=== PATIENT | female | born 1955 | race Caucasian/White ===

== ENCOUNTER 2019-09-20 22:39 | Emergency (ER) | payer OTHER ==
--- NOTE | 2019-09-21 00:17 | ER Document Report ---
ED Medical Screen (RME) - General Chief Complaint: Headache >24 hrs old Stated Complaint: HEADACHE Time Seen by Provider: 09/21/19 00:07 Notes: 63-year-old female chief complaint of headache. She states she has had intermittent headaches for several days to weeks but today was much more noticeable and would not resolve. She reports vague nausea and pressure all over her head. Her blood pressure is also elevated more than usual tonight, she is treated for hypertension and she is also on Eliquis for history of pulmonary embolism. She denies head injury or focal numbness/weakness. She denies visual changes. - Related Data Allergies/Adverse Reactions: No Known Allergies Allergy (Unverified 09/20/19 23:43) Home Medications: Eliquis. Amplodipine Past Medical History - Social History Frequency of alcohol use: None Drug Abuse: None Physical Exam - Vital signs Vitals: Temp Pulse Resp BP Pulse Ox 98.1 F 88 16 176/60 H 99 09/20/19 22:55 09/20/19 22:55 09/20/19 22:55 09/20/19 22:55 09/20/19 22:55 - Neurological Cognition: Normal Orientation: AAOx4 [place] Coma Scale Eye Opening: Spontaneous [place] Coma Scale Verbal: Oriented [place] Coma Scale Motor: Obeys Commands Dre Coma Scale Total: 15 Speech: Normal Course - Re-evaluation Re-evalutation: I have greeted and performed a rapid initial assessment of this patient. A comprehensive ED assessment and evaluation of the patient, analysis of test results and completion of the medical decision making process will be conducted by additional ED providers. - Vital Signs Vital signs: Temp Pulse Resp BP Pulse Ox 98.1 F 88 16 176/60 H 99 09/20/19 22:55 09/20/19 22:55 09/20/19 22:55 09/20/19 22:55 09/20/19 22:55
--- NOTE | 2019-09-21 00:49 | RADIOLOGY REPORT (SQ) ---
CT HEAD WITHOUT IV CONTRAST EXAM DATE: 09/21/2019 12:14 AM RESIDENTIAL PROPERTY MANAGER HISTORY: Headache, hypertension, on Eliquis. COMPARISON: None. TECHNIQUE: CT scan of the brain without IV contrast. This exam was performed according to our departmental dose-optimization program, which includes automated exposure control, adjustment of the mA and/or kV according to patient size and/or use of iterative reconstruction technique. FINDINGS: The ventricles, cisterns, and sulci are age-appropriate. No evidence of acute infarction, intracranial hemorrhage, extra-axial fluid collection, or midline shift. No air-fluid levels are seen in the paranasal sinuses to suggest acute sinusitis. No depressed skull fracture. IMPRESSION: No acute intracranial findings.
[2019-09-21] MEDS ORDERED: NORMAL SALINE 1000 ML 1,000 ML IV ONE (01:12)
[2019-09-21] MEDS ORDERED: KETOROLAC TROMETHAMINE INJ/PF 30 MG/1 ML SDV IV ONE (01:13)
[2019-09-21] MEDS ORDERED: METOCLOPRAMIDE HCL INJ/PF 10 MG/2 ML SDV IV ONE (01:13)
--- NOTE | 2019-09-21 01:28 | ER Document Report ---
ED General - General Chief Complaint: Headache >24 hrs old Stated Complaint: HEADACHE Time Seen by Provider: 09/21/19 00:07 TRAVEL OUTSIDE OF THE [place] IN LAST 30 DAYS: No - HPI Notes: Mrs. Mcgee is a 52-lerc-lrh-year-old female presenting with a chief complaint of headache. Patient has a remote history of migraine headaches but says she has not really had a bad migraine in over 5 years. She is not any specific treatment for migraine at this time. She notes that approximately 3 months ago she was started on Eliquis orally after she had a PE. Since then she has had some insidious onset of some intermittent dull generalized headaches. Over the last week they have become more intense and are now bitemporal and intermittently throbbing. Associated with nausea without vomiting. She occasi onally sees some "spots and wavy lines" in both eyes. She denies fever. She denies trauma. She denies any focal weakness. She denies paresthesias. No difficulty with swallowing or speaking. No associated nasal congestion or sinus problems that she is aware of. Intensity presently describes 5/10. She is taken Tylenol intermittently with minimal relief. Pertinent prior history: Hypertension Past smoker. PE - Related Data Allergies/Adverse Reactions: No Known Allergies Allergy (Unverified 09/20/19 23:43) Home Medications: Eliquis. Amplodipine Past Medical History - General Information source: Patient, Relative - Social History Smoking Status: Former Smoker Frequency of alcohol use: None Drug Abuse: None Family History: Reviewed & Not Pertinent Patient has suicidal ideation: No Patient has homicidal ideation: No Neurological Medical History: Reports: Hx Migraine Review of Systems - Review of Systems Notes: Constitutional: Negative for fever. HENT: Negative for sore throat. Eyes: As per HPI. Cardiovascular: Negative for chest pain. Respiratory: Negative for shortness of breath. Gastrointestinal: Positive for nausea. Negative for abdominal pain, vomiting or diarrhea. Genitourinary: Negative for dysuria. Musculoskeletal: Negative for back pain. Skin: Negative for rash. Neurological: As per HPI. 10 point ROS negative except as marked above and in HPI. Physical Exam - Vital signs Vitals: Temp Pulse Resp BP Pulse Ox 98.1 F 88 16 176/60 H 99 09/20/19 22:55 09/20/19 22:55 09/20/19 22:55 09/20/19 22:55 09/20/19 22:55 - Notes Notes: GENERAL: Well-developed well-nourished appearing in no acute distress. SKIN: Good turgor no rashes. HEAD: Normocephalic atraumatic. No tenderness or thickening on palpation over the temporal arteries. EYES: PERRLA. EOMI. Conjunctivae and sclerae clear. EARS: CANALS AND TMS CLEAR. NOSE: CLEAR. MOUTH: Moist mucosa. Good dentition. No stridor or edema. No drooling. NECK: Supple. No masses or thyromegaly. No adenopathy. Carotids 2+ without bruits. No JVD. BACK: Symmetrical without tenderness. CHEST: Respirations unlabored. Breath sounds clear and symmetrical. HEART: Regular rhythm. No murmur gallop or rub. ABDOMEN: Soft nontender without masses, organomegaly or rebound. Bowel sounds normally active. No bruits. GENITALIA: Deferred. EXTREMITIES: No edema. No calf tenderness. Cap refill less than 1.5 seconds. Dorsalis pedis and posterior tibial pulses 3+ and symmetrical. NEUROLOGICAL: GCS 15. Alert and oriented x3. Normal gait. Fluent speech. Cranial nerves II through XII intact. Sensorimotor and cerebellar normal. Normal tone. PSYCHIATRIC: Flat affect. Course - Re-evaluation Re-evalutation: 10/02/19 15:57 Patient's headache was felt to be due to migraine. She was treated with normal saline IV along with metoclopramide and Toradol. She felt much better with this and decided to sign herself out before I could get back into see her for follow- up evaluation. She left the department AGAINST MEDICAL ADVICE. - Vital Signs Vital signs: Temp Pulse Resp BP Pulse Ox 98.1 F 69 18 111/49 L 97 09/21/19 03:07 09/21/19 03:07 09/21/19 03:07 09/21/19 03:07 09/21/19 03:07 - Laboratory Result Diagrams: 09/21/19 01:48 09/21/19 01:48 Discharge - Discharge Clinical Impression: Migraine headache Qualifiers: Migraine type: unspecified Status migrainosus presence: without status migrainosus Intractability: not intractable Qualified Code(s): G43.909 - Migraine, unspecified, not intractable, without status migrainosus Disposition: AGAINST MEDICAL ADVICE
[2019-09-21 02:06] LABS: ABSOLUTE EOSINOPHILS # (AUTO) 0.1 10^3/uL (0.0-0.6); ABSOLUTE LYMPHOCYTES (AUTO) 1.5 10^3/uL (0.5-4.7); ABSOLUTE MONOCYTES (AUTO) 0.4 10^3/uL (0.1-1.4); ABSOLUTE NEUT (AUTO) 3.3 10^3/uL (1.7-8.2); BASOPHILS % (AUTO) 0.3 % (0-2); HEMATOCRIT 42.9 % (36.0-47.0); HEMOGLOBIN 14.6 g/dL (12.0-15.5); LYMPHOCYTES % (AUTO) 28.7 % (13-45); MEAN CORPUSCULAR HEMOGLOBIN 30.6 pg (27.0-33.4); MEAN CORPUSCULAR VOLUME 90 fl (80-97); PLATELET COUNT 281 10^3/uL (150-450); RED BLOOD COUNT 4.77 10^6/uL (3.72-5.28); TOTAL CELLS COUNTED % (AUTO) 100 %; WHITE BLOOD COUNT 5.3 10^3/uL (4.0-10.5)
[2019-09-21 02:24] LABS: ALBUMIN 4.4 g/dL (3.5-5.0); ALKALINE PHOSPHATASE 88 U/L (38-126); ANION GAP 10 (5-19); ASPARTATE AMINO TRANSFERASE 26 U/L (14-36); BILIRUBIN,DIRECT 0.2 mg/dL (0.0-0.4); BILIRUBIN,TOTAL 0.5 mg/dL (0.2-1.3); BLOOD UREA NITROGEN 18 mg/dL (7-20); CARBON DIOXIDE 27 mmol/L (22-30); CHLORIDE 104 mmol/L (98-107); GLUCOSE 101 mg/dL (75-110); POTASSIUM 4.2 mmol/L (3.6-5.0); TOTAL PROTEIN 7.6 g/dL (6.3-8.2)
[2019-09-21 02:56] LABS: ERYTHROCYTE SEDIMENTATION RATE 19 mm/hr (0-30)
[2019-09-21 03:13] VITALS: BP 111/49
== END 2019-09-21 04:03 | disposition left against medical advice (07) ==
LOC: ER 22:39
DX: G43.909 Migraine, unspecified, not intractable, without status migrainosus (principal); R11.0 Nausea; Z79.01 Long term (current) use of anticoagulants; Z86.711 Personal history of pulmonary embolism; Z79.899 Other long term (current) drug therapy; Z87.891 Personal history of nicotine dependence
CPT/HCPCS: 99281; 96361; 96374; 96375; 36415; 85025; 85652; 80053; 70450; J1885; J2765; J7030

== ENCOUNTER 2019-10-13 17:11 | Emergency (ER) | payer OTHER ==
--- NOTE | 2019-10-13 17:52 | ER Document Report ---
ED Medical Screen (RME) - General Chief Complaint: High Blood Pressure Stated Complaint: HEADACHE/ELEVATED BLOOD PRESSURE Time Seen by Provider: 10/13/19 17:25 Notes: Patient is a 63-year-old female with a history of high blood pressure who pre sents emergency department with a chief complaint of headache. Patient reports that she has been battling elevated blood pressure over the past 2 months. Patient reports she is currently on Xarelto for pulmonary embolus that was diagnosed back in July. Patient reports that she has been to her primary care physician multiple times with the last visit, last week. She reports that they have been adjusting her dosages of blood pressure medications to help with the hypertension. Patient reports last night she had the worst headache of her life and felt a lot of pressure to the top of her head. Patient reports intermittent dizziness and intermittent numbness to the front of her face. Patient reports on Monday she did have an episode of chest tightness. Patient reports that at home her blood pressure was in the 200s systolic. Patient concerned because never been that high before. TRAVEL OUTSIDE OF THE [place] IN LAST 30 DAYS: No - Related Data Allergies/Adverse Reactions: No Known Allergies Allergy (Unverified 10/13/19 17:26) Home Medications: Metoprolol Past Medical History - Past Medical History Cardiac Medical History: Reports: Hx Hypertension Neurological Medical History: Reports: Hx Migraine Past Surgical History: Reports: Hx Breast Surgery Physical Exam - HEENT Head: Normocephalic Eyes: Normal Conjunctiva: Normal Cornea: Normal Pupils: PERRL Course - Re-evaluation Re-evalutation: 10/13/19 17:51 I have greeted and performed a rapid initial assessment of this patient. A comprehensive ED assessment and evaluation of the patient, analysis of test results and completion of the medical decision making process will be conducted by additional ED providers.
[2019-10-13 18:35] LABS: ABSOLUTE LYMPHOCYTES (AUTO) 1.5 10^3/uL (0.5-4.7); ABSOLUTE MONOCYTES (AUTO) 0.4 10^3/uL (0.1-1.4); ABSOLUTE NEUT (AUTO) 3.5 10^3/uL (1.7-8.2); BASOPHILS % (AUTO) 0.2 % (0-2); EOSINOPHILS % (AUTO) 0.6 % (0-6); HEMATOCRIT 43.1 % (36.0-47.0); HEMOGLOBIN 14.8 g/dL (12.0-15.5); LYMPHOCYTES % (AUTO) 27.4 % (13-45); MEAN CORPUSCULAR HEMOGLOBIN 30.7 pg (27.0-33.4); MEAN CORPUSCULAR HGB CONC 34.4 g/dL (32.0-36.0); MEAN CORPUSCULAR VOLUME 89 fl (80-97); MONOCYTES % (AUTO) 6.6 % (3-13); PLATELET COUNT 273 10^3/uL (150-450); RED BLOOD COUNT 4.82 10^6/uL (3.72-5.28); SEGMENTED NEUTROPHILS % (AUTO) 65.2 % (42-78); TOTAL CELLS COUNTED % (AUTO) 100 %; WHITE BLOOD COUNT 5.4 10^3/uL (4.0-10.5)
--- NOTE | 2019-10-13 18:36 | RADIOLOGY REPORT (SQ) ---
EXAM DESCRIPTION: CT HEAD WITHOUT COMPLETED DATE/TIME: 10/13/2019 6:28 pm REASON FOR STUDY: on xarelto, elevated bp, "worst headache." COMPARISON: CT head 09/21/2019 TECHNIQUE: Axial images acquired through the brain without intravenous contrast. Images reviewed wi th bone, brain and subdural windows. Additional sagittal and coronal reconstructions were generated. Images stored on PACS. All CT scanners at this facility use dose modulation, iterative reconstruction, and/or weight based d osing when appropriate to reduce radiation dose to as low as reasonably achievable (ALARA). [facility]: Dose Right [facility]: CareDose [facility]: Dose Right [facility]: Teradose 4D [facility]: Digital Air Strike RADIATION DOSE: CT Rad equipment meets quality standard of care and radiation dose reduction techniq ues were employed. CTDIvol: 53.2 mGy. DLP: 991 mGy-cm. mGy. LIMITATIONS: None. FINDINGS: VENTRICLES: Normal size and contour. CEREBRUM: No masses. No hemorrhage. No midline shift. No evidence for acute infarction. Normal gra y/white matter differentiation. No areas of low density in the white matter. CEREBELLUM: No masses. No hemorrhage. No alteration of density. No evidence for acute infarction. EXTRAAXIAL SPACES: No fluid collections. No masses. ORBITS AND GLOBE: No intra- or extraconal masses. Normal contour of globe without masses. CALVARIUM: No fracture. PARANASAL SINUSES: No fluid or mucosal thickening. SOFT TISSUES: No mass or hematoma. OTHER: No other significant finding. IMPRESSION: No acute intracranial findings. EVIDENCE OF ACUTE STROKE: NO. COMMENT: Quality ID # [id number]: Final reports with documentation of one or more dose reduction techniques (e.g., Automated exposure control, adjustment of the mA and/or kV according to patient size, use of iterative reconstruction technique) TECHNICAL DOCUMENTATION: JOB ID: [id number] [employer]- All Rights Reserved Reading location - IP/workstation name: [email or web address]
[2019-10-13 18:41] LABS: APPEARANCE,URINE CLEAR; BILIRUBIN,URINE NEGATIVE (NEGATIVE); COLOR,URINE STRAW; GLUCOSE, URINE NEGATIVE (NEGATIVE); KETONES,URINE NEGATIVE (NEGATIVE); LEUKOCYTE ESTERASE,URINE NEGATIVE (NEGATIVE); NITRITE,URINE NEGATIVE (NEGATIVE); PROTEIN,URINE NEGATIVE (NEGATIVE); URINE SPECIFIC GRAVITY 1.003; UROBILINOGEN,URINE NEGATIVE mg/dL (<2.0)
[2019-10-13 18:52] LABS: ALBUMIN 4.6 g/dL (3.5-5.0); ALKALINE PHOSPHATASE 87 U/L (38-126); ANION GAP 11 (5-19); ASPARTATE AMINO TRANSFERASE 25 U/L (14-36); BILIRUBIN,DIRECT 0.2 mg/dL (0.0-0.4); BILIRUBIN,TOTAL 0.6 mg/dL (0.2-1.3); BLOOD UREA NITROGEN 12 mg/dL (7-20); CALCIUM 9.9 mg/dL (8.4-10.2); CARBON DIOXIDE 27 mmol/L (22-30); CHLORIDE 102 mmol/L (98-107); GLUCOSE 110 mg/dL (75-110); POTASSIUM 3.8 mmol/L (3.6-5.0)
--- NOTE | 2019-10-13 21:23 | ER Document Report ---
ED General - General Chief Complaint: High Blood Pressure Stated Complaint: HEADACHE/ELEVATED BLOOD PRESSURE Time Seen by Provider: 10/13/19 17:25 Primary Care Provider: MIRA ZAMORA FNP [Primary Care Provider] - Follow up as needed TRAVEL OUTSIDE OF THE [place] IN LAST 30 DAYS: No - HPI Notes: Patient is a 63-year-old female who presents to the emergency department for evaluation. She is had variable blood pressure over the last several weeks. She admits that she seen her primary care provider, who is changed her blood pressure medications multiple times. She also complains of headaches. She states that her headaches began when she was started on Xarelto. She was initially started on Eliquis, that was changed to Xarelto. This is for bilateral pulmonary emboli. The patient states that she has headaches that start in the back of her neck and reactive around her head. She states that she is concerned this is from the blood thinners. She states she really does not want to take any of these medications. She has been checking her blood pressure at least 4-6 times daily over the past several weeks. She has had multiple changes in her blood pressures. On further questioning, she is also under a significant amount of stress. Her mother is very infirmed and will likely not live for much longer. She lives next door. The patient is recently retired. She is had multiple life changes. - Related Data Allergies/Adverse Reactions: No Known Allergies Allergy (Unverified 10/13/19 17:26) Home Medications: List reviewed, please see note Past Medical History - General Information source: Patient - Social History Smoking Status: Former Smoker Family History: Reviewed & Not Pertinent Patient has suicidal ideation: No Patient has homicidal ideation: No - Past Medical History Cardiac Medical History: Reports: Hx Hypertension, Hx Pulmonary Embolism Neurological Medical History: Reports: Hx Migraine Past Surgical History: Reports: Hx Breast Surgery Review of Systems - Review of Systems Constitutional: No symptoms reported EENT: No symptoms reported Cardiovascular: No symptoms reported Respiratory: No symptoms reported Gastrointestinal: No symptoms reported Genitourinary: No symptoms reported Musculoskeletal: No symptoms reported Skin: No symptoms reported Neurological/Psychological: No symptoms reported Physical Exam - Vital signs Vitals: Resp 20 10/13/19 18:28 - Notes Notes: Vital signs reviewed, please refer to chart. Head is normocephalic, atraumatic. Pupils equal round, reactive to light. Neck is supple without meningismus. Heart is regular rate and rhythm. Lungs are clear to auscultation bilaterally. Abdomen is soft, nontender, normoactive bowel sounds throughout. Extremities without cyanosis, clubbing. Posterior calves are nontender. Peripheral pulses are equal. Skin is warm and dry. Patient is awake, alert, oriented x3. Cranial nerves II - XII are grossly intact without focal neurological deficits. Strength is plus 5 out of 5 bilateral upper and lower extremities. Sensation is intact. Reflexes symmetrical. Intact [id number], rapid alternating movements, [id number]. Course - Re-evaluation Re-evalutation: 10/13/19 21:21 Patient presents emergency department for evaluation. She had initial laboratory investigations as ordered through triage, including imaging. Laboratory investigation showed no signs of endorgan damage. Her exam is completely unremarkable. Her blood pressure improved significantly without intervention. My strong suspicion is that this patient is under significant amount of stress, both with concern over her health, as well as concern over some life changes. I strongly urged her to decrease her blood pressure checks to once daily. She is told to stick with one medication regimen over the next few weeks. She is to keep a record of these daily blood pressures and bring them at her fleece tier's office. We talked at length about stress, its relationship to headaches, chronic illness, and other issues. I strongly urged her to seek out further care in regards to the stressors in her life, whether it be with friends, pastoral care, or therapy. She voiced understanding. At any rate, we will have the patient go back on the losartan, hydrochlorothiazide, Norvasc combination, and follow-up as scheduled. She is to return to the ED with worsening. - Vital Signs Vital signs: Temp Pulse Resp BP Pulse Ox 18 134/65 H 97 10/13/19 20:01 10/13/19 20:00 10/13/19 20:01 - Laboratory Result Diagrams: 10/13/19 18:00 10/13/19 18:00 Laboratory results interpreted by me: 10/13/19 18:00 Urine Blood SMALL H - Diagnostic Test Radiology reviewed: Reports reviewed Radiology results interpreted by me: 10/13/19 21:[address] 10/13/19 17:48 IMPRESSION: No acute intracranial findings. EVIDENCE OF ACUTE STROKE: NO. - EKG Interpretation by Me Additional EKG results interpreted by me: 10/13/19 21:22 Sinus mechanism with a rate of 68 bpm. Normal axis and intervals, no acute ST changes concerning for ischemia or infarction. Discharge - Discharge Clinical Impression: Tension headache Hypertension Qualifiers: Hypertension type: essential hypertension Qualified Code(s): I10 - Essential (primary) hypertension Condition: Stable Disposition: HOME, SELF-CARE Instructions: Headache ([facility]), High Blood Pressure, Requiring Treatment ([facility]) Additional Instructions: Please take your losartan, hydrochlorothiazide, and amlodipine as directed. Check your blood pressure once daily, please take it at varying times. Follow- up with your primary care provider and fleece tier. If you develop worsening or new concerning symptoms of any sort, please return immediately to the emergency department for reevaluation. Referrals: MIRA ZAMORA FNP [Primary Care Provider] - Follow up as needed
--- NOTE | 2019-10-13 21:59 | EKG REPORT ---
SEVERITY:- NORMAL ECG - SINUS RHYTHM : Confirmed by: Tera Pompa MD 13-Oct-2019 21:58:21
[2019-10-13 22:08] VITALS: BP 129/62
== END 2019-10-13 22:10 | disposition home or self-care (01) ==
LOC: ER 17:11
DX: I10 Essential (primary) hypertension (principal); G44.209 Tension-type headache, unspecified, not intractable; M54.2 Cervicalgia; I26.99 Other pulmonary embolism without acute cor pulmonale; Z79.01 Long term (current) use of anticoagulants; Z87.891 Personal history of nicotine dependence
CPT/HCPCS: 36415; 70450; 80053; 81001; 84484; 85025; 93005; 93010; 99284

== ENCOUNTER → 2019-10-31 | Outpatient (CLI) | payer OTHER ==
--- NOTE | 2019-10-31 14:45 | RADIOLOGY REPORT (SQ) ---
EXAM DESCRIPTION: C SP 4 OR 5 VIEWS COMPLETED DATE/TIME: 10/31/2019 11:18 am REASON FOR STUDY: CERVICALGIA M54.2 CERVICALGIA M54.9 DORSALGIA, UNSPECIFIED COMPARISON: None. NUMBER OF VIEWS: Five views. TECHNIQUE: AP, lateral, obliques and odontoid radiographic images acquired of the cervical spine. LIMITATIONS: None. FINDINGS: MINERALIZATION: Normal. ALIGNMENT: Anatomic. VERTEBRAE: Vertebral bodies of normal height. DISCS: Mild disc narrowing at C5-6 with marginal osteophytes. FORAMINA: No osteophytes or foraminal narrowing. LATERAL AND POSTERIOR ELEMENTS: Facets, lateral masses and spinous processes without significant find ings. HARDWARE: None in the spine. SOFT TISSUES: No masses or calcifications. Lung apices clear. OTHER: No other significant finding. IMPRESSION: Mild degenerative disc disease and spondylosis. No acute finding. TECHNICAL DOCUMENTATION: JOB ID: [id number] 2010 [employer]- All Rights Reserved Reading location - IP/workstation name: [email or web address]
--- NOTE | 2019-10-31 14:47 | RADIOLOGY REPORT (SQ) ---
EXAM DESCRIPTION: T SPINE AP/LAT COMPLETED DATE/TIME: 10/31/2019 11:18 am REASON FOR STUDY: DORSALGIA, UNSPECIFIED M54.2 CERVICALGIA M54.9 DORSALGIA, UNSPECIFIED COMPARISON: None. NUMBER OF VIEWS: Two views. TECHNIQUE: AP and lateral radiographic images acquired of the thoracic spine. LIMITATIONS: None. FINDINGS: MINERALIZATION: Normal. ALIGNMENT: Mild levoscoliosis. VERTEBRAE: There are compression changes at about L3 and mild superior endplate compression changes a t L1. These do not appear to be acute. DISCS: Disc spaces are fairly well maintained. There are bridging osteophytes in the mid to lower th oracic spine. HARDWARE: None in the spine. MEDIASTINUM AND SOFT TISSUES: Normal heart size and aortic contour. No soft tissue abnormality. VISUALIZED LUNG EDWARD: Clear. OTHER: No other significant finding. IMPRESSION: Mild scoliosis. Spondylosis. No acute finding. TECHNICAL DOCUMENTATION: JOB ID: [id number] 2010 [employer]- All Rights Reserved Reading location - IP/workstation name: [email or web address]
== END ==
LOC: OD 10:53
PROVIDERS: ATTEND Family Medicine Geriatric Medicine
DX: M54.2 Cervicalgia (principal); M54.9 Dorsalgia, unspecified
CPT/HCPCS: 72050; 72070

== ENCOUNTER 2019-11-03 15:43 | Observation (INO) | payer OTHER ==
[2019-11-03] MEDS ORDERED: ASPIRIN 81 MG TABLET, CHEWABLE PO ONE (15:54)
[2019-11-03] MEDS ORDERED: ONDANSETRON 4 MG TAB.RAPDIS PO ONE (15:54)
--- NOTE | 2019-11-03 15:56 | ER Document Report ---
ED Medical Screen (RME) - General Chief Complaint: Chest Tightness Stated Complaint: CHEST TIGHTNESS, LEFT SHOULDER PAIN Time Seen by Provider: 11/03/19 15:53 Primary Care Provider: THOR TORRES MD [Primary Care Provider] - Follow up as needed Notes: 63 y/o female presents with left sided chest pain that radiates into her back/shoulder blade since she woke up this morning. States constant. Associated dyspnea and nausea. Pt states nothing makes worse, nothing makes better. Took 2 baby aspirin at home. Hx cardiac ablation 7-8 years ago. General Manager Food is Dr. Colby at [facility]. RRR. Lungs clear to auscultation bilaterally. I have greeted and performed a rapid initial assessment of this patient. A comprehensive ED assessment and evaluation of the patient, analysis of test results and completion of the medical decision making process with be conducted by additional ED providers. TRAVEL OUTSIDE OF THE [place] IN LAST 30 DAYS: No - Related Data Allergies/Adverse Reactions: No Known Allergies Allergy (Verified 11/03/19 15:50) Past Medical History - Past Medical History Cardiac Medical History: Reports: Hx Hypertension, Hx Pulmonary Embolism Neurological Medical History: Reports: Hx Migraine Past Surgical History: Reports: Hx Breast Surgery Doctor's Discharge - Discharge Referrals: THOR TORRES MD [Primary Care Provider] - Follow up as needed
--- NOTE | 2019-11-03 16:13 | ER Document Report ---
ED General - General Chief Complaint: Chest Pain Stated Complaint: CHEST TIGHTNESS, LEFT SHOULDER PAIN Time Seen by Provider: 11/03/19 15:53 Primary Care Provider: THOR TORRES MD [Primary Care Provider] - Follow up as needed Information source: Patient Notes: 63-year-old female arrives with 7 out of 10 chest pain left-sided with shortness of breath and anxiety and mild nausea. Patient says she feels cold. Patient saw Dr. Freeman photographer's assistant as well as drawer in [employer] last week who advised patient can be weaned off of her Eliquis. She was placed on Eliquis in July because of pulmonary embolism and she began to have severe headaches beginning in August which were quite severe. Her headaches have been decreasing in severity since she is weaned off of her Eliquis over the last week or so. She did take 2.5 this morning because of her left-sided chest pain and chewable aspirin as well. She denies any black tarry stools or hematemesis. Patient reports 8 years ago she did see Dr. Leo in [place] for a heart cath which she reports as negative. And also Dr. Rodriguez 7 years ago because of tachycardia requiring a cardiac ablation. Patient arrives today with a bifid T wave. She does have a history of celiac disease and Sjogren's syndrome which is controlled by gluten-free diet. TRAVEL OUTSIDE OF THE [place] IN LAST 30 DAYS: No - HPI Onset: Just prior to arrival - Related Data Allergies/Adverse Reactions: No Known Allergies Allergy (Verified 11/03/19 15:50) Home Medications: valsartatn. amlodipine. recently stopped eliquis. antibiotic. citalopram Past Medical History - General Information source: Patient - Social History Smoking Status: Former Smoker Cigarette use (# per day): No Chew tobacco use (# tins/day): No Smoking Education Provided: No Frequency of alcohol use: None Drug Abuse: None Lives with: Family Family History: Reviewed & Not Pertinent Patient has suicidal ideation: No Patient has homicidal ideation: No - Past Medical History Cardiac Medical History: Reports: Hx Hypertension, Hx Pulmonary Embolism, Other - tachycardia requiring cardiac ablation 7 years ago Neurological Medical History: Reports: Hx Migraine GI Medical History: Reports: Other - Sjorgens Past Surgical History: Reports: Hx Breast Surgery Review of Systems - Review of Systems Constitutional: No symptoms reported, Malaise, Recent illness EENT: No symptoms reported Cardiovascular: No symptoms reported, See HPI, Chest pain - L Sided chest pain patient holds this with her right hand, Palpitations, Dizziness, Lightheaded Respiratory: See HPI, Hurts to breathe, Short of breath Gastrointestinal: No symptoms reported Genitourinary: No symptoms reported Female Genitourinary: No symptoms reported Musculoskeletal: No symptoms reported Skin: No symptoms reported Hematologic/Lymphatic: No symptoms reported Neurological/Psychological: No symptoms reported Physical Exam - Vital signs Vitals: Resp BP 15 172/67 H 11/03/19 16:31 11/03/19 16:31 Interpretation: Normal - General General appearance: Alert, Anxious - HEENT Head: Normocephalic Eyes: Normal Conjunctiva: Normal Cornea: Normal Extraocular movements intact: Yes Eyelashes: Normal Pupils: PERRL Sinus: Normal Nasal: Normal Mouth/Lips: Normal Pharynx: Normal Neck: Normal - Respiratory Respiratory status: Tripod position Chest status: Tender Breath sounds: Normal Chest palpation: Normal - Cardiovascular Rhythm: Regular Heart sounds: Normal auscultation Murmur: No Friction rub: No Jeet's crunch: No - Abdominal Inspection: Normal Distension: No distension Bowel sounds: Normal Tenderness: Nontender Organomegaly: No organomegaly - Back Back: Normal - Extremities General upper extremity: Normal inspection General lower extremity: Normal inspection - Neurological Neuro grossly intact: Yes Cognition: Normal Orientation: AAOx4 [place] Coma Scale Eye Opening: Spontaneous Dre Coma Scale Verbal: Oriented Speech: Normal Cranial nerves: Normal Cerebellar coordination: Normal Motor strength normal: LUE, RUE, LLE, RLE - Psychological Associated symptoms: Normal affect - Skin Skin Temperature: Warm Skin Moisture: Dry Course - Vital Signs Vital signs: Temp Pulse Resp BP Pulse Ox 98.4 F 20 120/55 L 97 11/03/19 17:56 11/03/19 19:01 11/03/19 19:01 11/03/19 19:01 - Laboratory Result Diagrams: 11/03/19 16:05 11/03/19 16:05 Laboratory results interpreted by me: 11/03/19 11/03/19 16:05 18:15 Creatine Kinase 160 H Urine Ketones 20 H - Diagnostic Test Radiology reviewed: Reports reviewed - EKG Interpretation by Me EKG shows normal: Sinus rhythm Rate: Normal Rhythm: Other - bi T wave Critical Care Note - Critical Care Note Total time excluding time spent on procedures (mins): 90 Comments: I spoke with Dr. Thomas at 1642 and [facility] sent EKG to him . Dr. Thomas was again called after all labs returned at 1853 and he advised admission and he will evaluate the patient in the hospital. I discussed this case with Dr. Prasanth Rizzo and he advises admit Discharge - Discharge Clinical Impression: Chest pain Qualifiers: Chest pain type: unspecified Qualified Code(s): R07.9 - Chest pain, unspecified GERD (gastroesophageal reflux disease) Qualifiers: Esophagitis presence: with esophagitis Qualified Code(s): K21.0 - Gastro- esophageal reflux disease with esophagitis Medication adverse effect Qualifiers: Encounter type: initial encounter Qualified Code(s): T50.905A - Adverse effect of unspecified drugs, medicaments and biological substances, initial encounter Condition: Good Disposition: ADMITTED INPATIENT Admitting Provider: Matthias (Hospitalist) Unit Admitted: Telemetry Additional Instructions: For patient to telemetry Referrals: THOR TORRES MD [Primary Care Provider] - Follow up as needed
[2019-11-03 16:21] LABS: ABSOLUTE LYMPHOCYTES (AUTO) 1.2 10^3/uL (0.5-4.7); ABSOLUTE MONOCYTES (AUTO) 0.3 10^3/uL (0.1-1.4); ABSOLUTE NEUT (AUTO) 3.2 10^3/uL (1.7-8.2); BASOPHILS % (AUTO) 0.3 % (0-2); EOSINOPHILS % (AUTO) 0.2 % (0-6); HEMATOCRIT 41.7 % (36.0-47.0); HEMOGLOBIN 14.3 g/dL (12.0-15.5); LYMPHOCYTES % (AUTO) 25.5 % (13-45); MEAN CORPUSCULAR HEMOGLOBIN 30.9 pg (27.0-33.4); MEAN CORPUSCULAR HGB CONC 34.4 g/dL (32.0-36.0); MEAN CORPUSCULAR VOLUME 90 fl (80-97); MONOCYTES % (AUTO) 6.2 % (3-13); PLATELET COUNT 283 10^3/uL (150-450); RED BLOOD COUNT 4.64 10^6/uL (3.72-5.28); RED CELL DISTRIBUTION WIDTH 13.9 % (11.5-14.0); SEGMENTED NEUTROPHILS % (AUTO) 67.8 % (42-78); TOTAL CELLS COUNTED % (AUTO) 100 %; WHITE BLOOD COUNT 4.7 10^3/uL (4.0-10.5)
--- NOTE | 2019-11-03 16:24 | RADIOLOGY REPORT (SQ) ---
EXAM DESCRIPTION: CHEST 2 VIEWS COMPLETED DATE/TIME: 11/03/2019 4:16 pm REASON FOR STUDY: chest pain COMPARISON: None. TECHNIQUE: Frontal and lateral radiographic views of the chest acquired. NUMBER OF VIEWS: Two view. LIMITATIONS: None. FINDINGS: LUNGS AND PLEURA: No opacities, masses or pneumothorax. No pleural effusion. MEDIASTINUM AND HILAR STRUCTURES: No masses or contour abnormalities. HEART AND VASCULAR STRUCTURES: Heart normal size. No evidence for failure. BONES: No acute findings. HARDWARE: None in the chest. OTHER: No other significant finding. IMPRESSION: NO SIGNIFICANT RADIOGRAPHIC FINDING IN THE CHEST. TECHNICAL DOCUMENTATION: JOB ID: [id number] 2010 [email or web address]- All Rights Reserved Reading location - IP/workstation name: [email or web address]
[2019-11-03 16:30] LABS: INTERNATIONAL RATION (INR) 1.09; PROTHROMBIN TIME 14.1 SEC (11.4-15.4)
[2019-11-03 16:43] LABS: ALBUMIN 4.5 g/dL (3.5-5.0); ALKALINE PHOSPHATASE 92 U/L (38-126); ANION GAP 11 (5-19); ASPARTATE AMINO TRANSFERASE 26 U/L (14-36); BILIRUBIN,DIRECT 0.3 mg/dL (0.0-0.4); BILIRUBIN,TOTAL 0.7 mg/dL (0.2-1.3); BLOOD UREA NITROGEN 9 mg/dL (7-20); CALCIUM 9.3 mg/dL (8.4-10.2); CARBON DIOXIDE 22 mmol/L (22-30); CHLORIDE 106 mmol/L (98-107); CREATINE KINASE 160 U/L (30-135); GLUCOSE 98 mg/dL (75-110); POTASSIUM 4.3 mmol/L (3.6-5.0); TOTAL PROTEIN 7.7 g/dL (6.3-8.2)
[2019-11-03] MEDS ORDERED: LORAZEPAM INJ 2 MG/1 ML VIAL IV ONE (16:52)
[2019-11-03] MEDS ORDERED: LABETALOL HCL INJ 20 MG/4 ML DISP.SYRIN IV ONE (16:53)
[2019-11-03 17:15] LABS: CREATINE KINASE MB 0.73 ng/mL (<4.55)
[2019-11-03 17:16] LABS: TROPONIN I < 0.012 ng/mL
[2019-11-03 17:29] LABS: FREE T4 (FREE THYROXINE) 1.31 ng/dL (0.78-2.19)
[2019-11-03 17:43] LABS: THYROID STIMULATING HORMONE 0.66 uIU/mL (0.47-4.68)
--- NOTE | 2019-11-03 18:02 | RADIOLOGY REPORT (SQ) ---
EXAM DESCRIPTION: CT HEAD WITHOUT COMPLETED DATE/TIME: 11/03/2019 5:50 pm REASON FOR STUDY: tello cp COMPARISON: 10/13/2019 TECHNIQUE: Axial images acquired through the brain without intravenous contrast. Images reviewed wit h bone, brain and subdural windows. Images stored on PACS. All CT scanners at this facility use dose modulation, iterative reconstruction, and/or weight based d osing when appropriate to reduce radiation dose to as low as reasonably achievable (ALARA). [facility]: Dose Right [facility]: CareDose [facility]: Dose Right [facility]: Teradose 4D [facility]: Smart World[employer] RADIATION DOSE: CT Rad equipment meets quality standard of care and radiation dose reduction techniq ues were employed. CTDIvol: 53.2 mGy. DLP: 991 mGy-cm.. LIMITATIONS: None. FINDINGS: VENTRICLES: Normal size and contour. CEREBRUM: No masses. No hemorrhage. No midline shift. Age appropriate white matter. No evidence for a cute infarction. CEREBELLUM: No masses. No hemorrhage. No alteration of density. No evidence for acute infarction. EXTRA-AXIAL SPACES: No fluid collections. ORBITS AND GLOBE: No intra- or extraconal masses. Normal contour of globe without masses. CALVARIUM: No fracture. PARANASAL SINUSES: No fluid or mucosal thickening. SOFT TISSUES: No mass or hematoma. OTHER: No other significant finding. IMPRESSION: NO ACUTE INTRACRANIAL FINDINGS. EVIDENCE OF ACUTE STROKE: NO. TECHNICAL DOCUMENTATION: JOB ID: [id number] Quality ID # [id number]: Final reports with documentation of one or more dose reduction techniques (e.g., Au tomated exposure control, adjustment of the mA and/or kV according to patient size, use of iterative reconstruction technique) 2010 [employer]- All Rights Reserved Reading location - IP/workstation name: [email or web address]
--- NOTE | 2019-11-03 18:02 | EKG REPORT ---
SEVERITY:- BORDERLINE ECG - SINUS RHYTHM MILD NONSPECIFIC ST CHANGES AANTERIOR LEADS : Confirmed by: Tera Pompa MD 03-Nov-2019 18:01:27
--- NOTE | 2019-11-03 18:04 | RADIOLOGY REPORT (SQ) ---
EXAM DESCRIPTION: CTA CHEST COMPLETED DATE/TIME: 11/03/2019 5:50 pm REASON FOR STUDY: tello cp COMPARISON: Recent radiographs. TECHNIQUE: CT scan of the chest performed using helical scanning technique with dynamic intravenous contrast injection. Images reviewed with lung, soft tissue and bone windows. Reconstructed coronal and sagittal MPR images reviewed. Additional 3 dimensional post-processing performed to develop Maximal Intensity Projection images (ID P). All images stored on PACS. All CT scanners at this facility use dose modulation, iterative reconstruction, and/or weight based d osing when appropriate to reduce radiation dose to as low as reasonably achievable (ALARA). [facility]: Dose Right [facility]: CareDose [facility]: Dose Right [facility]: Teradose 4D [facility]: [employer] CONTRAST TYPE AND DOSE: contrast/concentration: Isovue 350.00 mg/ml; Total Contrast Delivered: 59.0 ml; Total Saline Delivered: 80.0 ml Contrast bolus adequate for pulmonary arteries and aorta. RENAL FUNCTION: GFR > 60. RADIATION DOSE: CT Rad equipment meets quality standard of care and radiation dose reduction techniq ues were employed. CTDIvol: 14.9 - 29.8 mGy. DLP: 1008 mGy-cm. . LIMITATIONS: None. FINDINGS: LUNGS AND PLEURA: No masses, infiltrates, or pneumothorax. No pleural effusions or pleura l calcifications. AORTA AND GREAT VESSELS: No aneurysm. Contrast bolus not optimized for the aorta. HEART: No pericardial effusion. No significant coronary artery calcifications. PULMONARY ARTERIES: No emboli visualized in the main pulmonary arteries or the segmental branches. HILAR AND MEDIASTINAL STRUCTURES: No identified masses or abnormal nodes. HARDWARE: None in the chest. UPPER ABDOMEN: No significant findings. Limited exam. THYROID AND OTHER SOFT TISSUES: No masses. No adenopathy. BONES: No acute or significant finding. 3D MIPS: Confirm above findings. OTHER: No other significant finding. IMPRESSION: NORMAL CTA OF THE CHEST. NO PULMONARY EMBOLI. COMMENT: Quality ID # [id number]: Final reports with documentation of one or more dose reduction techniques (e.g., Automated exposure control, adjustment of the mA and/or kV according to patient size, use of iterative reconstruction technique) TECHNICAL DOCUMENTATION: JOB ID: [id number] 2011 [employer]- All Rights Reserved Reading location - IP/workstation name: [email or web address]
[2019-11-03 18:40] LABS: APPEARANCE,URINE CLEAR; BILIRUBIN,URINE NEGATIVE (NEGATIVE); COLOR,URINE YELLOW; GLUCOSE, URINE NEGATIVE (NEGATIVE); KETONES,URINE 20 mg/dL (NEGATIVE); LEUKOCYTE ESTERASE,URINE NEGATIVE (NEGATIVE); NITRITE,URINE NEGATIVE (NEGATIVE); PROTEIN,URINE NEGATIVE (NEGATIVE); URINE SPECIFIC GRAVITY 1.042; UROBILINOGEN,URINE NEGATIVE mg/dL (<2.0)
[2019-11-03] MEDS ORDERED: NORMAL SALINE 1000 ML 1,000 ML IV ONE (18:51)
[2019-11-03] MEDS ORDERED: KETOROLAC TROMETHAMINE INJ/PF 30 MG/1 ML SDV IV ONE (18:52)
[2019-11-03] MEDS ORDERED: MAG HYDROX/AL HYDROX/SIMETH SUSP 30 ML UDCUP PO PRN (19:18)
[2019-11-03] MEDS ORDERED: NITROGLYCERIN 0.4 MG/TAB 25 TAB/BOTTLE SL PRN (19:18)
[2019-11-03] MEDS ORDERED: ACETAMINOPHEN 325 MG TABLET PO PRN (19:18)
[2019-11-03] MEDS ORDERED: ATORVASTATIN CALCIUM 80 MG TABLET PO SCH (22:00)
[2019-11-03 22:28] LABS: CREATINE KINASE MB 0.54 ng/mL (<4.55)
[2019-11-03 22:29] LABS: TROPONIN I < 0.012 ng/mL
[2019-11-03] MEDS ORDERED: ZOLPIDEM TARTRATE 5 MG TABLET ONE (22:49)
[2019-11-03] MEDS ORDERED: ZOLPIDEM TARTRATE 5 MG TABLET PO ONE (23:15)
[2019-11-04 03:55] VITALS: BP 118/54
[2019-11-04 04:09] LABS: TRIGLYCERIDES 49 mg/dL (<150)
[2019-11-04 04:20] LABS: DIRECT LDL 46 mg/dL (<100)
--- NOTE | 2019-11-04 04:20 | PDOC H&P ---
History of Present Illness Admission Date/PCP: 11/03/19 19:26 THOR TORRES MD Patient complains of: Chest pain History of Present Illness: TESSY VERMA is a 63 year old female with a past medical history from the patient indicating anxiety, celiac disease, migraine, irritable bowel syndrome, fibromyalgia, SVT status post ablation without recurrence and atypical chest pain evaluated at multiple centers without conclusive finding, fatigue and recent but unclear history of pulmonary embolism requiring only 3 months of Eliquis discontinued secondary to intractable headache. She presents with 7 out of 10 left-sided chest pain and back pain which is achy and sharp in nature lasting approximately 1 hour while at rest she was prompted to take aspirin without significant improvement. She is unable to identify alleviating or exacerbating factors in the emergency department she has an unremarkable work-up including CTA chest and is referred to the hospitalist for observation. Past Medical History Cardiac Medical History: Reports: Hypertension, Pulmonary Embolism, Other - tachycardia requiring cardiac ablation 7 years ago Neurological Medical History: Reports: Migraine GI Medical History: Reports: Other - Sjorgens Past Surgical History Past Surgical History: Reports: Cardiac Catheterization - 8 years ago, Cholecy stectomy Social History Information Source: Patient Lives with: Family Smoking Status: Former Smoker Electronic Cigarette use?: No Last Time Smoked: 2014 Frequency of Alcohol Use: None Hx Recreational Drug Use: No Drugs: None Hx Prescription Drug Abuse: No - Advance Directive Resuscitation Status: Full Code Family History Family History: Hypertension Parental Family History Reviewed: Yes Children Family History Reviewed: Yes Sibling(s) Family History Reviewed.: Yes Medication/Allergy Allergies/Adverse Reactions: No Known Allergies Allergy (Verified 11/03/19 15:50) Review of Systems ROS unobtainable: Due to mental status - Patient affirms subjective complaints to all systems and felt unreliable Physical Exam Vital Signs: Temp Pulse Resp BP Pulse Ox 98.4 F 61 16 118/54 L 97 11/04/19 03:40 11/04/19 03:40 11/04/19 03:40 11/04/19 03:40 11/04/19 03:40 Intake & Output 11/02/19 11/03/19 11/04/19 11:59 11:59 11:59 Intake Total 1000 Balance 1000 Weight 78.925 kg General appearance: PRESENT: no acute distress, cooperative, well-developed, well-nourished Head exam: PRESENT: atraumatic, normocephalic Eye exam: PRESENT: conjunctiva pink, EOMI, PERRLA. ABSENT: scleral icterus Ear exam: PRESENT: normal external ear exam Mouth exam: PRESENT: moist, tongue midline Neck exam: ABSENT: carotid bruit, JVD, lymphadenopathy, thyromegaly Respiratory exam: PRESENT: clear to auscultation nicanor. ABSENT: rales, rhonchi, wheezes Cardiovascular exam: PRESENT: RRR. ABSENT: diastolic murmur, rubs, systolic murmur Pulses: PRESENT: normal dorsalis pedis pul Vascular exam: PRESENT: normal capillary refill GI/Abdominal exam: PRESENT: normal bowel sounds, soft. ABSENT: distended, guarding, mass, organolmegaly, rebound, tenderness Rectal exam: PRESENT: deferred Extremities exam: PRESENT: full ROM. ABSENT: calf tenderness, clubbing, pedal edema Neurological exam: PRESENT: alert, awake, oriented to person, oriented to place, oriented to time, oriented to situation, CN II-XII grossly intact. ABSENT: motor sensory deficit Psychiatric exam: PRESENT: appropriate affect, normal mood. ABSENT: homicidal ideation, suicidal ideation Skin exam: PRESENT: dry, intact, warm. ABSENT: cyanosis, rash Results Laboratory Results: 11/03/19 16:05 11/03/19 16:05 11/03/19 11/03/19 11/03/19 16:05 16:05 16:05 WBC 4.7 RBC 4.64 Hgb 14.3 Hct 41.7 MCV 90 MCH 30.9 MCHC 34.4 RDW 13.9 Plt Count 283 Seg Neutrophils % 67.8 Sodium 139.3 Potassium 4.3 Chloride 106 Carbon Dioxide 22 Anion Gap 11 BUN 9 Creatinine 0.86 Est GFR ( Amer) > 60 Glucose 98 Calcium 9.3 Total Bilirubin 0.7 AST 26 Alkaline Phosphatase 92 Total Protein 7.7 Albumin 4.5 TSH 0.66 Free T4 1.31 Urine Color Urine Appearance Urine pH Ur Specific [place] Urine Protein Urine Glucose (UA) Urine Ketones Urine Blood Urine Nitrite Ur Leukocyte Esterase Urine WBC (Auto) Urine RBC (Auto) 11/03/19 18:15 WBC RBC Hgb Hct MCV MCH MCHC RDW Plt Count Seg Neutrophils % Sodium Potassium Chloride Carbon Dioxide Anion Gap BUN Creatinine Est GFR ( Amer) Glucose Calcium Total Bilirubin AST Alkaline Phosphatase Total Protein Albumin TSH Free T4 Urine Color YELLOW Urine Appearance CLEAR Urine pH 6.0 Ur Specific [place] 1.042 Urine Protein NEGATIVE Urine Glucose (UA) NEGATIVE Urine Ketones 20 H Urine Blood NEGATIVE Urine Nitrite NEGATIVE Ur Leukocyte Esterase NEGATIVE Urine WBC (Auto) 1 Urine RBC (Auto) 0 11/03/19 11/03/19 11/03/19 16:05 16:05 21:50 Creatine Kinase 160 H 124 CK-MB (CK-2) 0.73 Troponin I < 0.012 11/03/19 21:50 Creatine Kinase CK-MB (CK-2) 0.54 Troponin I < 0.012 Impressions: Chest X-Ray 11/03/19 15:54 IMPRESSION: NO SIGNIFICANT RADIOGRAPHIC FINDING IN THE CHEST. Chest/Abdomen CTA 11/03/19 16:31 IMPRESSION: NORMAL CTA OF THE CHEST. NO PULMONARY EMBOLI. Head CT 11/03/19 16:31 IMPRESSION: NO ACUTE INTRACRANIAL FINDINGS. EVIDENCE OF ACUTE STROKE: NO. Assessment and Plan - Diagnosis (1) Atypical chest pain Is this a current diagnosis for this admission?: Yes Plan: Atypical chest pain though the patient's pain is atypical there are multiple risk factors for coronary artery disease and subsequently will observe and evaluation of acute coronary syndrome versus coronary artery disease with ang inal equivalents. Cardiac monitoring blood pressure Q6 hours ,TSH, lipid profile, serial cardiac enzymes and consideration of cardiac stress test (2) Anxiety with somatization Is this a current diagnosis for this admission?: Yes Plan: Multiple system complaints with extensive work-up per patient at multiple facilities and subspecialist. Without current abnormal findings suggest reassurance and outpatient mental health evaluation. (3) GERD (gastroesophageal reflux disease) Qualifiers: Esophagitis presence: with esophagitis Qualified Code(s): K21.0 - Gastro- esophageal reflux disease with esophagitis Is this a current diagnosis for this admission?: Yes Plan: Trial Pepcid, possible esophageal spasm as cause of chief complaint - Time Time Spent with patient: 25-34 minutes - Inpatient Certification Medical Necessity: Need Close Monitoring Due to Risk of Patient Decompensation
[2019-11-04 04:22] LABS: CREATINE KINASE MB 0.47 ng/mL (<4.55); TROPONIN I < 0.012 ng/mL
[2019-11-04] MEDS ORDERED: VALSARTAN 160 MG TABLET PO SCH (11:30)
--- NOTE | 2019-11-04 16:07 | PDOC DISCHARGE SUMMARY ---
Impression - Admit/DC Date/PCP Admission Date/Primary Care Provider: 11/03/19 19:26 THOR TORRES MD Discharge Date: 11/04/19 - Discharge Diagnosis (1) Chest pain Is this a current diagnosis for this admission?: Yes (2) GERD (gastroesophageal reflux disease) Is this a current diagnosis for this admission?: Yes - Additional Information Resuscitation Status: Full Code Discharge Diet: As Tolerated Discharge Activity: Activity As Tolerated Referrals: THOR TORRES MD [Primary Care Provider] - 11/12/19 9:30 am Prescriptions: Pantoprazole Sodium [Protonix [address] Tablet] 40 mg PO QAM #30 tablet.dr Home Medications: Amlodipine Besylate [Norvasc 5 mg Tablet] 5 mg PO WSUPPER 11/04/19 Citalopram Hydrobromide [Citalopram HBr] 10 mg PO QHS 11/04/19 Ergocalciferol (Vitamin D2) [Drisdol 50,000 unit (1.25MG) Capsule] 50,000 unit PO TH@1000 11/04/19 Pantoprazole Sodium [Protonix [address] Tablet] 40 mg PO QAM #30 tablet. 11/04/19 Valsartan 320 mg PO DAILY 11/04/19 Zolpidem Tartrate [Ambien Cr] 0.5 tab PO QHS 11/04/19 History of Present Illiness History of Present Illness: Admitting hospitalist's H&P: TESSY VERMA is a 63 year old female with a past medical history from the patient indicating anxiety, celiac disease, migraine, irritable bowel syndrome, fibromyalgia, SVT status post ablation without recurrence and atypical chest pa in evaluated at multiple centers without conclusive finding, fatigue and recent but unclear history of pulmonary embolism requiring only 3 months of Eliquis discontinued secondary to intractable headache. She presents with 7 out of 10 left-sided chest pain and back pain which is achy and sharp in nature lasting approximately 1 hour while at rest she was prompted to take aspirin without significant improvement. She is unable to identify alleviating or exacerbating factors in the emergency department she has an unremarkable work-up including CTA chest and is referred to the hospitalist for observation. Hospital Course Hospital Course: Patient was admitted for atypical chest pain patient had a chest CTA which was normal. On encounter, she describes her chest pain as a burning and occasionally radiating to the back. She reports that this is associated with early satiety and epigastric fullness. She does state that she had acid reflux a few years back and she was on Nexium for a few months. Her troponins were all negative. There is no ischemic changes in the EKG. Her symptoms are more suggestive of GERD. She says that she had a remote stress testing which was negative. She will be set up with Dr. Hill Patricia for outpatient stress testing because she has not had a stress test recently. She will be discharged on Protonix. Physical Exam Vital Signs: Temp Pulse Resp BP Pulse Ox 98.4 F 60 16 118/54 L 97 11/04/19 10:42 11/04/19 10:42 11/04/19 10:42 11/04/19 03:40 11/04/19 10:42 Intake & Output 11/03/19 11/04/19 11/05/19 06:59 06:59 06:59 Intake Total 1000 Balance 1000 Weight 172 lb 6.424 oz General appearance: PRESENT: no acute distress, well-developed, well-nourished Head exam: PRESENT: atraumatic, normocephalic Eye exam: PRESENT: conjunctiva pink, EOMI, PERRLA. ABSENT: scleral icterus Ear exam: PRESENT: normal external ear exam Mouth exam: PRESENT: moist, tongue midline Neck exam: ABSENT: carotid bruit, JVD, lymphadenopathy, thyromegaly Respiratory exam: PRESENT: clear to auscultation nicanor. ABSENT: rales, rhonchi, wheezes Cardiovascular exam: PRESENT: RRR. ABSENT: diastolic murmur, rubs, systolic murmur Pulses: PRESENT: normal dorsalis pedis pul GI/Abdominal exam: PRESENT: normal bowel sounds, soft. ABSENT: distended, guarding, mass, organolmegaly, rebound, tenderness Rectal exam: PRESENT: deferred Extremities exam: PRESENT: full ROM. ABSENT: calf tenderness, clubbing, pedal edema Neurological exam: PRESENT: alert, awake, oriented to person, oriented to place, oriented to time, oriented to situation, CN II-XII grossly intact. ABSENT: motor sensory deficit Results Laboratory Results: WBC 4.7 10^3/uL (4.0-10.5) 11/03/19 16:05 RBC 4.64 10^6/uL (3.72-5.28) 11/03/19 16:05 Hgb 14.3 g/dL (12.0-15.5) 11/03/19 16:05 Hct 41.7 % (36.0-47.0) 11/03/19 16:05 MCV 90 fl (80-97) 11/03/19 16:05 MCH 30.9 pg (27.0-33.4) 11/03/19 16:05 MCHC 34.4 g/dL (32.0-36.0) 11/03/19 16:05 RDW 13.9 % (11.5-14.0) 11/03/19 16:05 Plt Count 283 10^3/uL (150-450) 11/03/19 16:05 Lymph % (Auto) 25.5 % (13-45) 11/03/19 16:05 [place] % (Auto) 6.2 % (3-13) 11/03/19 16:05 Eos % (Auto) 0.2 % (0-6) 11/03/19 16:05 Baso % (Auto) 0.3 % (0-2) 11/03/19 16:05 Absolute Neuts (auto) 3.2 10^3/uL (1.7-8.2) 11/03/19 16:05 Absolute Lymphs (auto) 1.2 10^3/uL (0.5-4.7) 11/03/19 16:05 Absolute Monos (auto) 0.3 10^3/uL (0.1-1.4) 11/03/19 16:05 Absolute Eos (auto) 0.0 10^3/uL (0.0-0.6) 11/03/19 16:05 Absolute Basos (auto) 0.0 10^3/uL (0.0-0.2) 11/03/19 16:05 Seg Neutrophils % 67.8 % (42-78) 11/03/19 16:05 PT 14.1 SEC (11.4-15.4) 11/03/19 16:05 INR 1.09 11/03/19 16:05 APTT 30.0 SEC (23.5-35.8) 11/03/19 16:05 Sodium 139.3 mmol/L (137-145) 11/03/19 16:05 Potassium 4.3 mmol/L (3.6-5.0) 11/03/19 16:05 Chloride 106 mmol/L (98-107) 11/03/19 16:05 Carbon Dioxide 22 mmol/L (22-30) 11/03/19 16:05 Anion Gap 11 (5-19) 11/03/19 16:05 BUN 9 mg/dL (7-20) 11/03/19 16:05 Creatinine 0.86 mg/dL (0.52-1.25) 11/03/19 16:05 Est GFR ( Amer) > 60 (>60) 11/03/19 16:05 Est GFR (MDRD) Non-Af > 60 (>60) 11/03/19 16:05 Glucose 98 mg/dL (75-110) 11/03/19 16:05 Calcium 9.3 mg/dL (8.4-10.2) 11/03/19 16:05 Total Bilirubin 0.7 mg/dL (0.2-1.3) 11/03/19 16:05 Direct Bilirubin 0.3 mg/dL (0.0-0.4) 11/03/19 16:05 Neonat Total Bilirubin Not Reportable 11/03/19 16:05 Neonat Direct Bilirubin Not Reportable 11/03/19 16:05 Neonat Indirect Bili Not Reportable 11/03/19 16:05 AST 26 U/L (14-36) 11/03/19 16:05 ALT 20 U/L (<35) 11/03/19 16:05 Alkaline Phosphatase 92 U/L (38-126) 11/03/19 16:05 Creatine Kinase 85 U/L (30-135) 11/04/19 03:38 CK-MB (CK-2) 0.47 ng/mL (<4.55) 11/04/19 03:38 Troponin I < 0.012 ng/mL 11/04/19 03:38 Total Protein 7.7 g/dL (6.3-8.2) 11/03/19 16:05 Albumin 4.5 g/dL (3.5-5.0) 11/03/19 16:05 Triglycerides 49 mg/dL (<150) 11/04/19 03:38 Cholesterol 95.60 mg/dL (0-200) 11/04/19 03:38 LDL Cholesterol Direct 46 mg/dL (<100) 11/04/19 03:38 VLDL Cholesterol 10.0 mg/dL (10-31) 11/04/19 03:38 HDL Cholesterol 41 mg/dL (>40) 11/04/19 03:38 TSH 0.66 uIU/mL (0.47-4.68) 11/03/19 16:05 Free T4 1.31 ng/dL (0.78-2.19) 11/03/19 16:05 Urine Color YELLOW 11/03/19 18:15 Urine Appearance CLEAR 11/03/19 18:15 Urine pH 6.0 (5.0-9.0) 11/03/19 18:15 Ur Specific [place]iss 1.042 11/03/19 18:15 Urine Protein NEGATIVE mg/dL (NEGATIVE) 11/03/19 18:15 Urine Glucose (UA) NEGATIVE mg/dL (NEGATIVE) 11/03/19 18:15 Urine Ketones 20 mg/dL (NEGATIVE) H 11/03/19 18:15 Urine Blood NEGATIVE (NEGATIVE) 11/03/19 18:15 Urine Nitrite NEGATIVE (NEGATIVE) 11/03/19 18:15 Urine Bilirubin NEGATIVE (NEGATIVE) 11/03/19 18:15 Urine Urobilinogen NEGATIVE mg/dL (<2.0) 11/03/19 18:15 Ur Leukocyte Esterase NEGATIVE (NEGATIVE) 11/03/19 18:15 Urine WBC (Auto) 1 /HPF 11/03/19 18:15 Urine RBC (Auto) 0 /HPF 11/03/19 18:15 Squamous Epi Cells Auto <1 /HPF 11/03/19 18:15 Urine Ascorbic Acid NEGATIVE (NEGATIVE) 11/03/19 18:15 11/03/19 11/03/19 11/04/19 16:05 21:50 03:38 CK-MB (CK-2) 0.73 0.54 0.47 Troponin I < 0.012 < 0.012 < 0.012 Impressions: Chest X-Ray 11/03/19 15:54 IMPRESSION: NO SIGNIFICANT RADIOGRAPHIC FINDING IN THE CHEST. Chest/Abdomen CTA 11/03/19 16:31 IMPRESSION: NORMAL CTA OF THE CHEST. NO PULMONARY EMBOLI. Head CT 11/03/19 16:31 IMPRESSION: NO ACUTE INTRACRANIAL FINDINGS. EVIDENCE OF ACUTE STROKE: NO. Stroke Is this a Stroke Patient?: No Acute Heart Failure - Is this a Heart Failure Patient?: No
[2019-11-04] MEDS ORDERED: ZOLPIDEM TARTRATE 5 MG TABLET PO SCH (22:00)
[2019-11-05] MEDS ORDERED: (PENDING PHARMACY ID) (Valsartan [Valsartan] 320 MG) PO SCH (10:00)
== END 2019-11-04 12:05 | disposition home or self-care (01) ==
LOC: ER 15:43 → EH 19:26 → INTOOBSV 19:26 → 3W 21:30
PROVIDERS: ADMIT Internal Medicine; ATTEND Internal Medicine
DX: R07.89 Other chest pain (principal); K21.0 Gastro-esophageal reflux disease with esophagitis; K90.0 Celiac disease; M79.7 Fibromyalgia; R68.81 Early satiety; M35.00 Sjogren syndrome, unspecified; K58.9 Irritable bowel syndrome, unspecified; M25.512 Pain in left shoulder; R06.02 Shortness of breath; R07.1 Chest pain on breathing; I10 Essential (primary) hypertension; R53.81 Other malaise; F41.9 Anxiety disorder, unspecified; F45.0 Somatization disorder; Z79.899 Other long term (current) drug therapy; Z86.711 Personal history of pulmonary embolism; Z98.890 Other specified postprocedural states; Z90.49 Acquired absence of other specified parts of digestive tract; Z87.891 Personal history of nicotine dependence; Z82.49 Family history of ischemic heart disease and other diseases of the circulatory system
CPT/HCPCS: 93005; 99291; 99292; 96374; 96375; 36415 ×2; 84439; 82553 ×2; 82550 ×2; 84443; 85025; 85610; 85730; 80053; 81001; 84484 ×2; 80061; 71046; 70450; 71275; 93010; G0378 ×3; S0119; J3490 ×2; J1885; J2060; J7030

== ENCOUNTER → 2020-10-12 | Outpatient (CLI) | payer OTHER ==
[~2020-10-12] MED LIST: COVID-19 VACCINE (PFIZER)/PF 30 MCG/0.3 ML VIAL IM ONE; EPINEPHRINE INJ/PF 1 MG/1 ML AMPULE IM PRN
== END ==
LOC: EMPHEALTH 13:00
PROVIDERS: ATTEND Internal Medicine
DX: Z23 Encounter for immunization (principal)
CPT/HCPCS: 91300